=== PATIENT | male | born 1950 | race Caucasian/White ===

== ENCOUNTER 2017-11-06 08:27 | Outpatient (CLI) | payer MEDICARE | END 2017-11-06 08:28 | disposition home or self-care (01) | LOC: BICMRI 08:27 | PROVIDERS: ATTEND Orthopaedic Surgery | DX: M75.102 Unspecified rotator cuff tear or rupture of left shoulder, not specified as traumatic (principal); S46.812A Strain of other muscles, fascia and tendons at shoulder and upper arm level, left arm, initial encounter; M25.412 Effusion, left shoulder ==

== ENCOUNTER 2017-11-12 08:34 | Outpatient (CLI) | payer MEDICARE ==
[2017-11-12 09:58] LABS: #Basophils 0.1 thou/uL (0.0-0.2); #Eosinphils 0.1 thou/uL (0.0-0.7); #Lymphocytes 1.6 thou/uL (1.20-3.40); #Monocytes 0.8 thou/uL (0.11-0.59); %Basophils 0.7 % (0.0-1.0); %Eosinophils 0.7 % (0.0-10.0); %Lymphocytes 21.5 % (21.0-51.0); %Monocytes 10.8 % (0.0-10.0); %Neutrophils 66.3 % (42.0-75.0); Hemoglobin 16.5 g/dL (14.0-18.0); Mean Corpuscular HGB CONC 33.6 g/dL (32.0-36.0); Mean Corpuscular Hemoglobin 31.1 pg (27.0-31.0); Mean Corpuscular Volume 92.4 fL (78.0-98.0); Mean Platelet Volume 8.1 fL (7.4-10.4); Platelet Count 173 thou/uL (130-400); RBC Distribution Width 12.7 % (11.5-14.5); Red Blood Cell (RBC) Count 5.32 mill/uL (4.70-6.10); White Blood Cell (WBC) Count 7.5 thou/uL (4.8-10.8)
[2017-11-12 10:09] LABS: Anion Gap 15 mmol/L (10-20); BUN (Urea Nitrogen) 27 mg/dL (8.4-25.7); Calc. Creatinine Clearance 0 mL/min (70-130); Calcium 9.9 mg/dL (7.8-10.44); Carbon Dioxide 24 mmol/L (23-31); Chloride 103 mmol/L (98-107); Estimated GFR-MDRD 62; Glucose 85 mg/dL (80-115); Potassium 4.3 mmol/L (3.5-5.1); Sodium 138 mmol/L (136-145)
== END 2017-11-12 08:35 | disposition home or self-care (01) ==
LOC: LABBT 08:34
PROVIDERS: ATTEND Orthopaedic Surgery
DX: Z01.818 Encounter for other preprocedural examination (principal); M75.102 Unspecified rotator cuff tear or rupture of left shoulder, not specified as traumatic
CPT/HCPCS: 80048; 85025; 93005; 93010

== ENCOUNTER 2017-11-15 07:24 | Day surgery (SDC) | payer MEDICARE ==
[2017-11-12 08:59] VITALS: BMI 31.5
[2017-11-15] MEDS ORDERED: CEFAZOLIN/Water 2 GM/20 ML SYRINGE ONE (07:55)
[2017-11-15] MEDS ORDERED: Fentanyl 100 MCG/2 ML VIAL ONE ×2 (09:00→12:25)
[2017-11-15] MEDS ORDERED: Midazolam HCl 2 mg/2 ml Vial ONE (09:00)
[2017-11-15] MEDS ORDERED: Promethazine HCl 25 MG/ML VIAL IM PRN (09:48)
[2017-11-15] MEDS ORDERED: traMADol HCl 50 MG TAB PO PRN ×2 (09:48)
[2017-11-15] MEDS ORDERED: Ondansetron HCl/PF 4 MG/2 ML Vial IVP PRN (09:48)
[2017-11-15] MEDS ORDERED: Ropivacaine HCl/PF 1,100 MG in Sodium Chloride 0.9% 440 ML NERVE BLCK SCH (09:48)
[2017-11-15] MEDS ORDERED: Ketorolac Tromethamine 30 MG/ML VIAL IVP PRN (09:48)
[2017-11-15] MEDS ORDERED: HYDROcodone/Acetaminophen 5/325 mg Tablet PO PRN ×2 (09:48)
[2017-11-15] MEDS ORDERED: Zolpidem Tartrate 5 MG TAB PO PRN (09:48)
[2017-11-15] MEDS ORDERED: Fentanyl 100 MCG/2 ML VIAL IV PRN (09:49)
--- NOTE | 2017-11-15 13:27 | OP ---
DATE OF PROCEDURE: 11/15/2017 PREOPERATIVE DIAGNOSIS: Left recurrent chronic rotator cuff tear. POSTOPERATIVE DIAGNOSIS: Left recurrent chronic rotator cuff tear. PROCEDURE: Open left shoulder acromioplasty, biceps tenodesis and revision rotator cuff repair using a double row technique. . COMPONENTS USED: Arthrex 5.5 double suture anchor x3 with 2 SwiveLock suture anchor Bio[employer]posite jelly f-punching anchors. SURGEON: Armin Lorenzana M.D. MEDIA ASSOCIATE: Rayray Rodríguez PA-C. ANESTHESIA: General via endotracheal tube augmented with a left interscalene block with indwelling c atheter. ESTIMATED BLOOD LOSS: Less than 20 mL. INPUT: 900 mL crystalloid. No flow Cloud was placed. DRAINS: None. SPECIMENS: None. COMPLICATIONS: None. COUNTS: Correct. INDICATIONS FOR SURGERY: Ye is a 67-year-old male who has got a history of having a left rotato r cuff repair greater than 5 years ago. He has had recurrent pain, discomfort, and weakness and MRI demonstrated a recurrent retracted supraspinatus, infraspinatus tear. His pain more recently got wor se about 2 months later after lifting something heavy. MRI demonstrated retracted tear. Therefore, he elected to proceed with open rotator cuff tear. PROCEDURE IN DETAIL: After informed consent was obtained in the preoperative holding area, the patie tana was taken to the operative suite where he received preoperative antibiotics and general anesthesia was induced. An endotracheal tube was placed and secured. Once adequate anesthesia was obtained, t he patient was positioned appropriately in the beach chair position. Left shoulder was then prepped and draped in usual sterile fashion. Prior to incision, a timeout was called and all members of surg ical team agreed upon site, surgeon, and patient. An incision was made then directly over the acromi on extending down distally approximately 3 fingerbreadths. Subcutaneous tissues were divided with Jensen vie electrocautery. Anterior and middle deltoid raphe was then identified and bluntly dissected. Jensen vie electrocautery was then used to remove the tissue off of the acromion exposing it fully. We then used a sharp osteotome to remove the acromion and Leksell rongeur to remove any debris. Full synove ctomy was performed and carried out and the length of the full supraspinatus, infraspinatus insertion al rotator cuff was then identified. The cuff was mobile and fully pliable. We placed a traction st itch, identified the underside of the full thickness tear and began placing 3 suture anchors and afte r creating a bone trough at the interface of the chondral margin. We turned our attention to the bic eps identifying it inside the shoulder, grabbing it with a traction stitch and cutting it at its inse rtion, up at the glenoid with a curved Mayos. We then stitched and secured the proximal biceps, crea blaire a small place in the bicipital groove, placed it down with a 7 x 23 tenodesis screw. We then rere amaya all double anchor stitches through the biceps and tied it down sequentially and then used a doubl e crossed double row technique with suture anchors. After completing the double anchor we had a wate rtight repair of this particular rotator cuff tear with good bone tendon interface footprint. The en tire wound was copiously irrigated with normal saline. A primary repair of the muscle was performed with a #1 Ethibond x4. The rest of the muscular raphe was closed with a #1 Vicryl, subcutaneous lay er was closed with interrupted stitches. Subcuticular layer was closed with 2-0 Vicryl, and stainles s steel susannah were used to reapproximate the skin. Sterile dressing was applied. The procedure wa s terminated without complication. The patient was extubated and awakened in the operative suite and taken to recovery room in stable condition.
[2017-11-15] MEDS ORDERED: Ropivacaine 0.2% HCl/PF (40 MG/20 ML VIAL) ONE (13:59)
[2017-11-15] MEDS ORDERED: Ropivacaine 0.5% HCl/PF (150 MG/30 ML VIAL) ONE (13:59)
[2017-11-15] MEDS ORDERED: Glycopyrrolate 0.2 MG/ML 5 ML SYRINGE ONE (14:45)
[2017-11-15] MEDS ORDERED: Ondansetron HCl/PF 4 MG/2 ML Vial ONE (14:45)
[2017-11-15] MEDS ORDERED: PROPOFOL 200 MG/20 ML VIAL ONE (14:45)
[2017-11-15] MEDS ORDERED: Ketorolac Tromethamine 30 MG/ML VIAL ONE (14:45)
[2017-11-15] MEDS ORDERED: Dexamethasone 20 MG/5 ML VIAL ONE (14:45)
== END 2017-11-15 15:10 | disposition home or self-care (01) ==
LOC: SDC 07:24
PROVIDERS: ATTEND Orthopaedic Surgery
PROC: 0LQ20ZZ Repair Left Shoulder Tendon, Open Approach (ICD-10-PCS; principal; 2017-11-15)
PROC: 0RQH0ZZ Repair Left Acromioclavicular Joint, Open Approach (ICD-10-PCS; 2017-11-15)
PROC: 0LS20ZZ Reposition Left Shoulder Tendon, Open Approach (ICD-10-PCS; 2017-11-15)
DX: S46.012A Strain of muscle(s) and tendon(s) of the rotator cuff of left shoulder, initial encounter (principal); M75.41 Impingement syndrome of right shoulder; E78.5 Hyperlipidemia, unspecified; I48.91 Unspecified atrial fibrillation; K21.9 Gastro-esophageal reflux disease without esophagitis; Z79.82 Long term (current) use of aspirin; Z79.899 Other long term (current) drug therapy; X50.0XXA Overexertion from strenuous movement or load, initial encounter
CPT/HCPCS: 23130; 23412; 23430; 96374; 97139; C1713 ×2; G8984; G8985; G8986; J1100; J1885; J2250; J2405; J2704; J2795; J3010; J7050

== ENCOUNTER 2021-03-25 09:52 | Outpatient (CLI) | payer OTHER | END 2021-03-25 09:53 | disposition home or self-care (01) | LOC: DTY/OP 09:52 | PROVIDERS: ATTEND Family Medicine | DX: E66.9 Obesity, unspecified (principal); Z68.33 Body mass index [BMI] 33.0-33.9, adult | CPT/HCPCS: 97802 ==